=== PATIENT | male | born 1980 | race Caucasian/White ===

== ENCOUNTER 2017-07-28 19:14 | Emergency (ER) | payer OTHER ==
[~2017-07-28] VITALS: Ht 165.1 cm; Wt 84.0 kg
[2017-07-28] MEDS ORDERED: ERYTHROMYC1 APPLICAT RIGHT EYE (22:21)
[2017-07-28] MEDS ORDERED: TOBREX5 ML RIGHT EYE (22:21)
[2017-07-28] MEDS ORDERED: NORCO 5/3251 TABLET PO (22:21)
[2017-07-28] MEDS ORDERED: AUGMENTIN875 MG PO (22:21)
[2017-07-28 22:50] VITALS: BP 138/103
== END 2017-07-28 22:51 | disposition home or self-care (01) ==
LOC: EXP 19:14 → EME 19:14 → EXP 22:51
DX: S05.01XA Injury of conjunctiva and corneal abrasion without foreign body, right eye, initial encounter (principal); S00.11XA Contusion of right eyelid and periocular area, initial encounter; S40.212A Abrasion of left shoulder, initial encounter; Y04.2XXA Assault by strike against or bumped into by another person, initial encounter; S20.472A Other superficial bite of left back wall of thorax, initial encounter; Y04.1XXA Assault by human bite, initial encounter; M25.572 Pain in left ankle and joints of left foot; M25.571 Pain in right ankle and joints of right foot; F41.9 Anxiety disorder, unspecified; F32.9 Major depressive disorder, single episode, unspecified; Z87.891 Personal history of nicotine dependence
CPT/HCPCS: 73610; 99281; 99284